=== PATIENT | female | born 1955 | race Caucasian/White ===

== ENCOUNTER → 2018-12-10 11:58 | Outpatient (CLI) | payer MEDICARE, SELFPAY ==
--- NOTE | 2018-12-10 | DI.RAD.S_ITS ---
PROCEDURE: XR ANKLE LT MIN 3V INDICATIONS: left ankle pain TECHNIQUE: 3 views of the ankle were acquired. COMPARISON: None. FINDINGS: Bones : curvilinear calcifications over lateral cortex of distal lateral malleolus is seen consistent with small avulsion injury in this area. No other fracture or dislocation. Ankle mortise is normally aligned. No suspicious bony lesions. Soft tissues: No tibiotalar joint effusion. Achilles tendon appears normal. Lateral ankle soft tissue swelling is seen. IMPRESSION: The finding is concerning for small avulsion injury involving lateral malleolus with overlying soft tissue swelling. Dictated by: Homero Nolan M.D. on 12/10/2018 at 13:31 Approved by: Homero Nolan M.D. on 12/10/2018 at 13:32
== END ==
PROVIDERS: PCP Family Medicine; Visit Provider Family Medicine
DX: M25.572 Pain in left ankle and joints of left foot (principal); M79.89 Other specified soft tissue disorders
CPT/HCPCS: 73610